=== PATIENT | female | born 1945 | race Caucasian/White ===

== ENCOUNTER 2018-11-01 05:48 | Day surgery (SDC) | payer OTHER ==
[~2018-11-01 05:48] MED LIST: PERCOCET 5/3251 TAB PO
== END 2018-11-01 09:25 | disposition home or self-care (01) ==
LOC: AMB-ENDOS 05:48
DX: K57.30 Diverticulosis of large intestine without perforation or abscess without bleeding (principal)

== ENCOUNTER 2021-03-26 13:02 | Outpatient (CLI) | payer OTHER | END 2021-03-26 15:32 | disposition home or self-care (01) | LOC: LAB 13:02 | PROVIDERS: ATTEND Specialist | DX: D17.1 Benign lipomatous neoplasm of skin and subcutaneous tissue of trunk (principal) ==

== ENCOUNTER 2021-04-08 07:09 | Outpatient (CLI) | payer OTHER | END 2021-04-08 07:24 | disposition home or self-care (01) | LOC: MRI 07:09 | PROVIDERS: ATTEND Specialist | DX: K80.80 Other cholelithiasis without obstruction (principal); D17.1 Benign lipomatous neoplasm of skin and subcutaneous tissue of trunk | CPT/HCPCS: 72157; A9575 ==

== ENCOUNTER → 2021-11-25 07:18 | Outpatient (CLI) | payer OTHER | END | disposition home or self-care (01) | LOC: NUCLEAR 07:00 | PROVIDERS: ATTEND Surgery | DX: K57.32 Diverticulitis of large intestine without perforation or abscess without bleeding (principal); K80.10 Calculus of gallbladder with chronic cholecystitis without obstruction | CPT/HCPCS: 78227; A9537 ==

== ENCOUNTER 2021-12-10 07:34 | Outpatient (CLI) | payer OTHER | END 2021-12-10 07:41 | disposition home or self-care (01) | LOC: TOM 07:34 | PROVIDERS: ATTEND Surgery | DX: K57.32 Diverticulitis of large intestine without perforation or abscess without bleeding (principal); K80.10 Calculus of gallbladder with chronic cholecystitis without obstruction ==

== ENCOUNTER 2022-01-19 11:00 | Inpatient (IN) | payer OTHER ==
[~2022-01-19] VITALS: Ht 160 cm; Wt 63.0 kg
[2022-01-19] MEDS ORDERED: DILTIAZEM ER240 M3 PO (12:40)
[2022-01-19] MEDS ORDERED: PRAVASTATIN SOD20 MG PO (12:41)
[2022-01-19] MEDS ORDERED: DOXAZOSIN MESYLA2 MG PO (12:41)
[2022-01-27] MEDS ORDERED: INTESTINEX680 M1 PO (08:24)
[2022-01-27] MEDS ORDERED: HYOSCYAMINE0.125 M1 SL (08:24)
[2022-01-27] MEDS ORDERED: KETO10TA2 PO (08:26)
[2022-01-27] MEDS ORDERED: LEVSIN/SL0.125 MG SL (08:26)
== END 2022-01-28 12:42 | disposition home or self-care (01) | DRG 330 ==
LOC: SURG 01-24 07:00 → O/R 01-24 07:15 → SURG 01-24 11:00 → SURH 01-24 14:38
PROVIDERS: ADMIT Surgery; ATTEND Surgery
PROC: 0DBP4ZZ Excision of Rectum, Percutaneous Endoscopic Approach (ICD-10-PCS; 2022-01-24)
PROC: 0DJD8ZZ Inspection of Lower Intestinal Tract, Via Natural or Artificial Opening Endoscopic (ICD-10-PCS; 2022-01-24)
PROC: 0DTN4ZZ Resection of Sigmoid Colon, Percutaneous Endoscopic Approach (ICD-10-PCS; principal; 2022-01-24 07:00)
DX: K57.32 Diverticulitis of large intestine without perforation or abscess without bleeding (principal); K80.10 Calculus of gallbladder with chronic cholecystitis without obstruction; I11.9 Hypertensive heart disease without heart failure; N73.6 Female pelvic peritoneal adhesions (postinfective); N99.4 Postprocedural pelvic peritoneal adhesions; Z86.16 Personal history of COVID-19; Z20.822 Contact with and (suspected) exposure to COVID-19

== ENCOUNTER → 2022-01-24 09:00 | Outpatient (CLI) | payer OTHER ==
[~2022-01-24 09:00] MED LIST changes: +DILTIAZEM ER240 M3 PO; +DOXAZOSIN MESYLA2 MG PO; +PRAVASTATIN SOD20 MG PO
== END | disposition home or self-care (01) ==
LOC: LAB 09:00
PROVIDERS: ATTEND Surgery
DX: Z03.818 Encounter for observation for suspected exposure to other biological agents ruled out (principal)

== ENCOUNTER 2022-12-07 14:15 | Emergency (ER) | payer OTHER ==
[~2022-12-07] VITALS: Ht 160 cm; Wt 65.3 kg
[~2022-12-07 14:15] MED LIST changes: +HYOSCYAMINE0.125 M1 SL; +INTESTINEX680 M1 PO; +KETO10TA2 PO; +LEVSIN/SL0.125 MG SL
== END 2022-12-07 19:03 | disposition home or self-care (01) ==
LOC: ER 14:15
DX: R19.5 Other fecal abnormalities (principal); I10 Essential (primary) hypertension; E78.00 Pure hypercholesterolemia, unspecified; K57.92 Diverticulitis of intestine, part unspecified, without perforation or abscess without bleeding

== ENCOUNTER 2024-06-17 09:23 | Outpatient (CLI) | payer OTHER | END 2024-06-17 09:26 | disposition home or self-care (01) | LOC: SONOGRAMA 09:23 | PROVIDERS: ATTEND Pathology Anatomic Pathology & Clinical Pathology | DX: E04.2 Nontoxic multinodular goiter (principal); D34 Benign neoplasm of thyroid gland ==